=== PATIENT | male | born 1965 | race Two or more races ===

== ENCOUNTER 2024-12-28 10:40 | Inpatient (IN) | payer MEDICAID, SELFPAY ==
[2024-12-28 10:41] VITALS: PULSE 62; RESP 20; O2SAT 98; BMI 35.2
--- NOTE | 2024-12-28 10:43 | PD.EDAMS ---
Altered Mental Status RME/HPI General Chief Complaint: Altered Mental Status Stated Complaint: ALTERED Time Seen by Provider: 12/28/24 10:48 Arrival date/time: 12/28/24 10:40 RME / HPI RME / HPI narrative: DR. MARTINEZ MAIN ED EVALUATION: 59-year-old male with past medical history of hypertension, diabetes mellitus type 2, and GERD presents to the Emergency Department for altered mental status. Per EMS family had mentioned to him that the patient had been behaving normal up until the evening of yesterday and then this morning was more somnolent than normal. Family called 911, when EMS arrived and was placed in the ambulance he became agitated and combative. On route by EMS, he was noted to be have a heart rate in the 50s. He received 1 mg Versed and is now sleeping comfortably. Daily medications include losartan 50 mg, metformin 500 mg, propranolol 40 mg, and sucralfate 1 g. He underwent colonoscopy on 01/24/[address] Winkler. Related Data Home Medications ?Medication ?Instructions ?Recorded ?Confirmed losartan 50 mg tablet 50 mg PO QDAY 01/24/24 12/29/24 metformin 500 mg tablet 500 mg PO BID 01/24/24 12/29/24 propranolol 40 mg tablet 40 mg PO DAILY 01/24/24 12/29/24 sucralfate 1 gram tablet 1 g PO BID 01/24/24 12/29/24 Previous Rx's ?Medication ?Instructions ?Recorded B-complex with vitamin C 1 cap PO QDAY #30 caps 12/30/24 ferrous sulfate 325 mg (65 mg 325 mg PO Q OTHER DAY #30 tabs 12/30/24 iron) tablet lactulose 20 gram oral packet 20 g PO QID PRN encephalopathy #30 12/30/24 ea Allergies Allergy/AdvReac Type Severity Reaction Status Date / Time No Known Allergies Allergy Verified 01/24/24 07:18 Review of Systems Review of Systems Systems Reviewed: All systems reviewed, normal except as documented Past Medical History Past Medical History CARDIAC: Positive Cardiac Disorders and Hypertension MUSCULOSKELETAL: Positive Musculoskeletal Disorders ENDOCRINE: Positive Endocrine Disorders and Diabetes Mellitus Type 2 Social History SMOKING STATUS: Never smoker SUBSTANCE USE: does not use ALCOHOL: Never ED Exam General General appearance: Present in no apparent distress (sleeping) and other Head Head exam: Present other (Patient has scattered scratches on his face, no gross trauma, no septal hematoma, no oropharyngeal blood, no bruising appreciated to patient's face, no facial instability) Eye Eye exam: Present normal appearance and PERRL ENT ENT exam: Present normal exam and normal oropharynx Neck Neck exam: Present normal inspection; Absent tenderness Chest Chest inspection: Present normal inspection and symmetric chest wall rise Respiratory Respiratory exam: Present normal lung sounds bilaterally; Absent respiratory distress, wheezes or stridor Cardiovascular Cardiovascular exam: Present normal rhythm and bradycardia Abdominal Exam Abdominal exam: Present soft; Absent distention, tenderness, guarding, rebound or rigidity Extremities Exam Extremities exam: Present normal inspection Back Exam Back exam: Present normal inspection Neurological Exam Neurological exam: Present other (sleeping, no focal or neuro deficits noted, at times becomes combative, moves all 4 extremities,) Psychiatric Psychiatric exam: Present agitated (Alternates between agitated and sleeping) Skin Skin exam: Present warm, dry, intact and normal color Course Quality Measures none Orders Category Date Time Status Mendoza [Urinary Catheter] QS Care 12/28/24 10:[address] cervical spine wo con Stat Exams 12/28/24 13:[address] head/brain wo con Stat Exams 12/28/24 10:48 Completed US abdomen limited Stat Exams 12/28/24 12:25 Completed Ammonia Stat Lab 12/28/24 11:00 Completed CBC Stat Lab 12/28/24 11:00 Completed CMP [Comprehensive Metabolic Panel] Stat Lab 12/28/24 11:00 Completed Drug Screen,Urine Stat Lab 12/28/24 11:00 Completed PT [Prothrombin Time with INR] Stat Lab 12/28/24 11:00 Completed T4 (Thyroxine) Stat Lab 12/28/24 11:00 Completed TSH [Thyroid Stimulating Hormone] Stat Lab 12/28/24 11:00 Completed Troponin I Stat Lab 12/28/24 11:00 Completed UA, C/S IF [Urinalysis, C/S if Indicated] Stat Lab 12/28/24 11:00 Completed Lactulose Syrup [Enulose Syrup] Med 12/28/24 12:43 Discontinued 20 gm SC X1 ONE Lactulose Syrup [Enulose Syrup] Med 12/28/24 11:57 Discontinued 200 gm SC X1 ONE Midazolam Inj [Versed Inj] Med 12/28/24 14:18 Discontinued 0.5 mg IVP X1 ONE Midazolam Inj [Versed Inj] Med 12/28/24 14:23 Discontinued 1 mg IVP X1 ONE Vital Signs Vital signs: Vital Signs Temperature 98.5 F 12/28/24 11:00 Pulse Rate 56 L 12/28/24 11:00 Respiratory Rate 18 12/28/24 11:00 Blood Pressure 155/94 H 12/28/24 11:00 Pulse Oximetry (%) 98 12/28/24 11:00 Oxygen Delivery Method Room Air 12/28/24 11:00 Altered Mental Status MDM Narrative MDM Narrative:: Patient is a 59-year-old male that is in the emergency department with acute confusion. Vital signs and exam as listed. Concern for intracranial hemorrhage, metabolic derangement, accidental ingestion, hyperammonemia, metabolic disturbance among others. Patient presented sleeping, with a spit mask in place, EMS provided patient with 1 mg of IV Versed in route because he was combative. Patient is protecting his airway.. Ordered CT brain, EKG as well as labs. Patient with ammonia greater than 100. Ordered rectal lactulose. 12p spoke with patient's sister, patient was diagnosed cirrhosis not too long ago he has been noncompliant with his lactulose. Also has a history of diabetes and hypertension. Labs without any leukocytosis he does have a thrombocytopenia of 128. No signs of bleeding. No significant acute electrolyte abnormality. Patient's T. bili is 1.7, AST is 46, alk phos 132. Patient has cirrhosis. 1349: Patient has a few scratches on his face and a cervical collar was placed. Will scan the neck and head. Will consult hospitalist for admission. 1458: Discussed test HPI, PMHx, lab, radiology results and/or management with resident working with the hospitalist. Will admit for further evaluation and management. Accepts patient for admission. CT cervical spine w/ motion artifact. Advised accepting team of results. Hanh Mcleod am scribing for and in the presence of Dr. Martinez. Patient data External records reviewed:: [facility] previous records and EMS form Clinical information provided by:: patient, EMS and family Social determinants that could affect healthcare access:: none Patient has the following chronic illnesses:: Past medical history of hypertension, diabetes mellitus type 2, and GERD. He underwent colonoscopy on 01/24/[address] Winkler. How is presenting disease/condition affected by chronic disease/condition?: uneffected by Evaluation data The following diagnostics were reviewed and interpreted by me:: lab results and radiology exam(s) Lab and/or radiology exams considered but not ordered:: none Interpretation Summary: See MDM narrative above. RADIOLOGY Procedure(s): CT head/brain wo con Accession Number(s): [id number] cc: Renny Cui MD; Magda Martinez MD~ Examination: CT brain head without contrast. 2-D sagittal coronal reconstructions Date and time of exam:December 28, 2024, 11:10 AM Indications: Altered mental status today CTDI: vol (mGy):57.4 DLP: (mGycm):1142 Technique: Multiple CT axial sections of the brain have been obtained, 5 mm slice thickness. Contrast has not been administered. 2-D sagittal, coronal reconstructions have been obtained Low dose protocols were performed. One or more of the following dose reduction techniques were used; automated exposure control, adjustment of the mA and/or KV according to patient size, use of iterative reconstruction technique. Findings: No significant ventricular enlargement. Intra-axial or extra-axial hemorrhage density is not seen. No mass effect or midline shift Basal cisterns are not remarkable. Fourth ventricle is midline. Cranial vault intact. Impression: Negative for acute hemorrhage, mass effect or midline shift Advise clinical correlation and follow-up accordingly Dictated By: Renny Cui MD Procedure(s): US abdomen limited Accession Number(s): [id number] cc: Renny Cui MD; NO PRIMARY/FAMILY,PHYSICIAN; Magda Martinez MD~ Examination: Abdomen sonogram, Limited Date and time of exam: December 28, 2024, 1216 hrs. Indications: Elevated bilirubin on laboratory examination today, 1.7 Technique: Real-time olivo scale transabdominal sonographic images of the upper abdomen obtained. Findings: Normal gallbladder. Normal common bile duct 0.3 cm no stones Pancreatic head 2.8 cm. Liver 13.5 cm fatty infiltration irregular contour Normal hepatopedal portal venous flow Patent IVC Impression: Normal gallbladder Normal common bile duct Primary hepatocellular disease versus cirrhosis Dictated By: Renny Cui MD Procedure(s): CT cervical spine wo con Accession Number(s): [id number] cc: Renny Cui MD; NO PRIMARY/FAMILY,PHYSICIAN; Magda Martinez MD~ Examination: CT cervical spine without contrast 2-D sagittal reconstructions 2-D coronal reconstructions 3-D reconstructions. Exam date and time:December 28, 2024 at 1408 hrs. Indications: Injury to the neck today, neck pain CTDI:vol (mGy) 183 DLP: (mGycm) 356 Technique: Multiple 2 mm axial sections of the cervical spine have been obtained. The coronal and sagittal reconstructions have been obtained. 3-D reconstructions have been obtained. Low dose protocols were performed. One or more of the following dose reduction techniques were used; automated exposure control, adjustment of the mA and/or KV according to patient size, use of iterative reconstruction technique. Findings: The patient is condyle of, patient motion degrades scan image quality Alignment appears adequate No gross cervical fracture The odontoid appears intact Impression: The patient is combative with continual patient motion which severely limits this study No gross fracture noted Repeat this study as clinically warranted Dictated By: Renny Cui MD Medications / Prescriptions Medications or Prescriptions considered but not ordered:: none Medication administrations:: Medication Administration History Discontinued Medications Acetaminophen (Acetaminophen 325 Mg Tablet) 1,000 mg PO Q6H PRN PRN Reason: PAIN SCALE 1-3 (mild Stop: 01/27/25 15:12 Acetaminophen (Acetaminophen 325 Mg Tablet) 1,000 mg PO Q6H PRN PRN Reason: fever 99 or pain 1-06/10 Stop: 01/27/25 15:12 Hydrocodone Bitart/Acetaminophen (Hydrocodone/Apap 5/325 Tablet) 1 tab PO Q4HR PRN PRN Reason: PAIN SCALE 4-6 (Moderate Stop: 01/02/25 15:12 Hydrocodone Bitart/Acetaminophen (Hydrocodone/Apap 10/325 Tab) 1 tab PO Q4HR PRN PRN Reason: PAIN SCALE 7-10 (Severe Stop: 01/02/25 15:12 Olanzapine 10 mg/ Sterile (Water 2.1 ml) 0 mg IM X1 ONE Stop: 12/29/24 00:24 Last Admin: 12/29/24 00:34 Dose: 1 dose Documented By: KENDRA Olanzapine 10 mg/ Sterile (Water 2.1 ml) 0 mg IM X1 ONE Stop: 12/29/24 00:25 Last Admin: 12/29/24 00:48 Dose: Not Given Documented By: KENDRA Non-Admin Reason: Cancelled by Provider Comments: Per Dr. Bundy, cancel this order due to duplicate. Dextrose (Dextrose 50%-Water Inj 50 Ml Syringe) 25 ml IV Q15MIN PRN PRN Reason: BG 50-70 responsive npo pt Stop: 01/27/25 20:56 Dextrose (Dextrose 50%-Water Inj 50 Ml Syringe) 50 ml IV Q15MIN PRN PRN Reason: BG <50 OR BG <70 & pt unresponsive Stop: 01/27/25 20:56 Diazepam (Diazepam Inj 5 Mg/Ml Vial 2 Ml) 10 mg IVP Q2HR PRN PRN Reason: CIWA >20 Stop: 01/03/25 10:01 Diphenhydramine HCl (Diphenhydramine Inj 50 Mg/Ml Vial) 25 mg IVP X1 ONE Stop: 12/29/24 02:54 Last Admin: 12/29/24 02:58 Dose: 25 mg Documented By: KENDRA Folic Acid (Folic Acid 1 Mg Tablet) 1 mg PO QDAY [facility] Stop: 01/31/25 08:59 Folic Acid (Folic Acid Inj 1 Mg/0.2 Ml) 1 mg IVP QDAY [facility] Stop: 01/01/25 08:59 Last Admin: 12/30/24 08:34 Dose: 1 mg Documented By: Glucagon (Glucagon Inj 1 Mg Vial) 1 mg IM Q15MIN PRN PRN Reason: BG <70, and no IV access Haloperidol Lactate (Haloperidol Lact Inj 5 Mg/Ml Vial) 2.5 mg IV X1 ONE Stop: 12/28/24 16:08 Last Admin: 12/28/24 16:20 Dose: 2.5 mg Documented By: SHAILESH Haloperidol Lactate (Haloperidol Lact Inj 5 Mg/Ml Vial) 2.5 mg IV Q6HR PRN PRN Reason: AGITATION (SEVERE) Stop: 01/02/25 21:59 Haloperidol Lactate (Haloperidol Lact Inj 5 Mg/Ml Vial) Confirm Administered Dose 5 mg .ROUTE .STK-MED ONE Stop: 12/28/24 19:16 Last Admin: 12/28/24 19:21 Dose: Not Given Documented By: MEDARDO Non-Admin Reason: Discontinued Haloperidol Lactate (Haloperidol Lact Inj 5 Mg/Ml Vial) 2.5 mg IV Q6HR PRN PRN Reason: AGITATION (SEVERE) Stop: 01/27/25 19:24 Last Admin: 12/28/24 19:25 Dose: 2.5 mg Documented By: MEDARDO Comments: pt agitated Haloperidol Lactate (Haloperidol Lact Inj 5 Mg/Ml Vial) 2.5 mg IV X1 ONE Stop: 12/28/24 22:15 Last Admin: 12/28/24 22:23 Dose: 2.5 mg Documented By: KENDRA Heparin Sodium (Porcine) (Heparin Sod Inj 5000 Unit/Ml Vial) 5,000 unit SC BID [facility] Stop: 01/11/25 20:59 Last Admin: 12/30/24 08:32 Dose: 5,000 unit Documented By: Co-signed By: BRYAN Admin: 12/29/24 20:02 Dose: 5,000 unit Documented By: MARCIA Co-signed By: MANAS Admin: 12/29/24 08:32 Dose: 5,000 unit Documented By: Co-signed By: BRYAN Admin: 12/28/24 20:45 Dose: 5,000 unit Documented By: KENDRA Co-signed By: SAHLEY Hydralazine HCl (Hydralazine Inj 20 Mg/Ml Vial) 10 mg IVP BID PRN PRN Reason: BP >140 Stop: 01/27/25 20:59 Hydroxyzine HCl (Hydroxyzine Inj 25 Mg/Ml Vial) 50 mg IM X1 ONE Stop: 12/29/24 00:18 Last Admin: 12/29/24 02:40 Dose: Not Given Documented By: CCT Non-Admin Reason: Cancelled by Provider Lactated Ringer's (Lactated Ringers) 1,000 mls @ 75 mls/hr IV .[id number] [facility] Stop: 01/27/25 16:53 Last Admin: 12/29/24 11:52 Dose: Not Given Documented By: Non-Admin Reason: Discontinued Infusion: 12/29/24 06:39 Dose: Infused Documented By: Admin: 12/28/24 17:19 Dose: 75 mls/hr Documented By: SHAILESH Magnesium Sulfate (Magnesium Sulfate Ivpb) 2 gm in 50 mls @ 25 mls/hr IV X1 ONE Stop: 12/29/24 15:54 Last Admin: 12/29/24 14:16 Dose: 25 mls/hr Documented By: Potassium Chloride (Kcl Ivpb) 10 meq in 100 mls @ 100 mls/hr IV Q1H [facility] Stop: 12/30/24 11:52 Last Admin: 12/30/24 12:17 Dose: Not Given Documented By: Non-Admin Reason: Discontinued Infusion: 12/30/24 10:49 Dose: Infused Documented By: Admin: 12/30/24 09:29 Dose: 75 mls/hr Documented By: Magnesium Sulfate (Magnesium Sulfate Ivpb) 2 gm in 50 mls @ 25 mls/hr IV X1 ONE Stop: 12/30/24 15:48 Last Admin: 12/30/24 14:20 Dose: 25 mls/hr Documented By: Insulin Human Lispro (Insulin Lispro (Admelog) 1 Unit/0.01 Ml Unit) 0 unit SC Q6HR [facility]; Protocol Stop: 01/28/25 00:00 Last Admin: 12/29/24 11:53 Dose: Not Given Documented By: Non-Admin Reason: Per Protocol Admin: 12/29/24 06:36 Dose: Not Given Documented By: KENDRA Non-Admin Reason: Per Protocol Admin: 12/28/24 23:43 Dose: Not Given Documented By: KENDRA Non-Admin Reason: Per Protocol Insulin Human Lispro (Insulin Lispro (Admelog) 1 Unit/0.01 Ml Unit) 0 unit SC ACHS [facility]; Protocol Stop: 01/28/25 17:14 Last Admin: 12/30/24 16:47 Dose: Not Given Documented By: Non-Admin Reason: Per Protocol Admin: 12/30/24 11:45 Dose: 2 unit Documented By: Co-signed By: BRYAN Admin: 12/30/24 08:38 Dose: Not Given Documented By: Non-Admin Reason: Per Protocol Admin: 12/29/24 20:05 Dose: 1 unit Documented By: MARCIA Co-signed By: MANAS Admin: 12/29/24 17:19 Dose: Not Given Documented By: Non-Admin Reason: Per Protocol Lactulose (Lactulose Syrup 10 Gm/15 Ml) 200 gm SC X1 ONE; Protocol Stop: 12/28/24 11:58 Last Admin: 12/28/24 13:26 Dose: Not Given Documented By: SVETLANA Non-Admin Reason: Cancelled by Provider Lactulose (Lactulose Syrup 20 Gm/30 Ml Udc) 20 gm SC X1 ONE; Protocol Stop: 12/28/24 12:44 Last Admin: 12/28/24 17:36 Dose: Not Given Documented By: SHAILESH Non-Admin Reason: Cancelled by Provider Lactulose (Lactulose Syrup 20 Gm/30 Ml Udc) 200 gm SC QID [facility]; Protocol Stop: 01/27/25 16:59 Lactulose (Lactulose Syrup 10 Gm/15 Ml) 200 gm SC QID [facility]; Protocol Stop: 01/27/25 16:59 Last Admin: 12/29/24 06:50 Dose: Not Given Documented By: CCT Non-Admin Reason: Hold dose per Dr. Barrett Admin: 12/28/24 20:54 Dose: 200 gm Documented By: Admin: 12/28/24 20:14 Dose: Not Given Documented By: CCT Non-Admin Reason: Wrong Time Lactulose (Lactulose Syrup 20 Gm/30 Ml Udc) 10 gm PO TID [facility]; Protocol Stop: 01/28/25 09:14 Last Admin: 12/30/24 14:21 Dose: 10 gm Documented By: Admin: 12/30/24 05:26 Dose: 10 gm Documented By: Admin: 12/29/24 22:22 Dose: 10 gm Documented By: Admin: 12/29/24 14:17 Dose: 10 gm Documented By: Admin: 12/29/24 09:42 Dose: 10 gm Documented By: Lorazepam (Lorazepam 0.5 Mg Tablet) 1 mg PO Q4HR PRN PRN Reason: CIWA 5-10 Stop: 01/03/25 10:01 Lorazepam (Lorazepam 0.5 Mg Tablet) 2 mg PO Q2HR PRN PRN Reason: CIWA 11-15 Stop: 01/03/25 10:01 Lorazepam (Lorazepam 0.5 Mg Tablet) 4 mg PO Q2HR PRN PRN Reason: CIWA 16-20 Stop: 01/03/25 10:01 Losartan Potassium (Losartan Potassium 25 Mg Tablet) 50 mg PO QDAY [facility] Stop: 01/28/25 08:59 Last Admin: 12/30/24 08:35 Dose: 50 mg Documented By: Admin: 12/29/24 09:41 Dose: 50 mg Documented By: Midazolam HCl (Midazolam Inj 1 Mg/Ml Vial 2 Ml) 0.5 mg IVP X1 ONE Stop: 12/28/24 14:19 Last Admin: 12/28/24 15:11 Dose: Not Given Documented By: EF Non-Admin Reason: Cancelled by Provider Midazolam HCl (Midazolam Inj 1 Mg/Ml Vial 2 Ml) 1 mg IVP X1 ONE Stop: 12/28/24 14:24 Last Admin: 12/28/24 14:27 Dose: 1 mg Documented By: EF Midazolam HCl (Midazolam Inj 1 Mg/Ml Vial 2 Ml) 1 mg IVP X1 ONE Stop: 12/28/24 16:07 Last Admin: 12/28/24 16:20 Dose: 1 mg Documented By: EF Olanzapine (Olanzapine 5 Mg Tablet) 5 mg PO X1 ONE Stop: 12/29/24 00:16 Ondansetron HCl (Ondansetron Inj 2 Mg/Ml Inj 2 Ml) 4 mg IV Q6HR PRN; Protocol PRN Reason: NAUSEA OR VOMITING Stop: 01/27/25 16:45 Pantoprazole Sodium (Pantoprazole Inj 40 Mg Vial) 40 mg IVP QDAY [facility] Stop: 01/27/25 16:14 Last Admin: 12/30/24 08:32 Dose: 40 mg Documented By: Admin: 12/29/24 08:25 Dose: 40 mg Documented By: Admin: 12/28/24 16:20 Dose: 40 mg Documented By: SHAILESH Potassium Chloride (Potassium Chloride 20 Meq Tabcr) 20 meq PO X1 ONE Stop: 12/30/24 10:43 Last Admin: 12/30/24 11:39 Dose: 20 meq Documented By: Potassium Chloride (Potassium Chloride 20 Meq Tabcr) 20 meq PO X1 ONE Stop: 12/30/24 13:49 Last Admin: 12/30/24 14:21 Dose: 20 meq Documented By: Propranolol HCl (Propranolol 40 Mg Tablet) 40 mg PO DAILY [facility] Stop: 01/29/25 10:44 Last Admin: 12/30/24 11:39 Dose: 40 mg Documented By: Sevelamer Carbonate (Sevelamer Carbonate 800 Mg Tablet) 800 mg PO X1 ONE Stop: 12/30/24 08:52 Last Admin: 12/30/24 09:28 Dose: 800 mg Documented By: Sucralfate (Sucralfate 1 Gm Tablet) 1 gm PO BID [facility] Stop: 01/28/25 08:59 Last Admin: 12/30/24 08:32 Dose: 1 gm Documented By: Admin: 12/29/24 20:02 Dose: 1 gm Documented By: Admin: 12/29/24 09:40 Dose: 1 gm Documented By: Thiamine HCl (Thiamine Inj 100 Mg/Ml Vial 2 Ml) 100 mg IVP QDAY [facility] Stop: 01/01/25 08:59 Last Admin: 12/30/24 08:33 Dose: 100 mg Documented By: Thiamine HCl (Thiamine 100 Mg Tablet) 100 mg PO QDAY [facility] Stop: 01/31/25 08:59 see above if any Consultations Consultation(s) initiated? (list below): Yes Consultation #1 (Physician, Specialty, Details): See MDM narrative above. Diagnosis Differential diagnosis altered mental status: other (Medication-induced encephalopathy, metabolic encephalopathy, and stroke/TIA.) Most likely diagnosis given after review of the tests above:: Hepatic encephalopathy Admission Indicated Admission indicated?: indicated Admission Request Was there a request for admission?: Yes Admission Attestation Admission request attestation: Discussed case with [] from Hospitalist service regarding admission. Discussed patients ED course, exam findings, labs, and radiology results. The Hospitalist [agrees,declines] to accept the patient for admission. Disposition Plan Disposition Plan: Admit Critical Care Time Critical Care Time Critical Care Time: Yes Total Critical Care Time (min.): 60 Attestation: The high probability of sudden, clinically significant deterioration in the patient?s condition required the highest level of my preparedness to intervene urgently. The services I provided to this patient were to treat and/or prevent clinically significant deterioration. Services included the following: chart data review, reviewing nursing notes and/or old charts, documentation time, distributor sales consultant collaboration regarding findings and treatment options, medication orders and management, direct patient care, vital sign assessments and ordering, interpreting and reviewing diagnostic studies and lab tests. Aggregate critical care time includes only time during which I was engaged in work directly related to the patient?s care, as described above, whether at bedside or elsewhere in the Emergency Department. It did not include time spent performing other reported procedures or the services of residents, students, nurses or physician assistants. Discharge Plan Plan Patient Disposition: Admit Acute Care w/in Hospital Patient condition on transfer: Stable Problem List Clinical Impression: Altered mental status
--- NOTE | 2024-12-28 10:48 | XR_ITS ---
Examination: CT brain head without contrast. 2-D sagittal coronal reconstructions Date and time of exam:December 28, 2024, 11:10 AM Indications: Altered mental status today CTDI: vol (mGy):57.4 DLP: (mGycm):1142 Technique: Multiple CT axial sections of the brain have been obtained, 5 mm slice thickness. Contrast has not been administered. 2-D sagittal, coronal reconstructions have been obtained Low dose protocols were performed. One or more of the following dose reduction techniques were used; automated exposure control, adjustment of the mA and/or KV according to patient size, use of iterative reconstruction technique. Findings: No significant ventricular enlargement. Intra-axial or extra-axial hemorrhage density is not seen. No mass effect or midline shift Basal cisterns are not remarkable. Fourth ventricle is midline. Cranial vault intact. Impression: Negative for acute hemorrhage, mass effect or midline shift Advise clinical correlation and follow-up accordingly
[2024-12-28 11:00] VITALS: BP 155/94; PULSE 56; RESP 18; TEMP 36.9; O2SAT 98
[2024-12-28 11:13] LABS: Collection Type, Urine Clean Catch; Squamous Epithelial Cell,Urine 0 /hpf (0-5)
[2024-12-28 11:17] LABS: Basophils # (Auto) 0.0 Thou/mm3 (0.0-0.2); Basophils % (Auto) 1 % (0-2.5); Eosinophils # (Auto) 0.1 Thou/mm3 (0.0-0.5); Eosinophils % (Auto) 1 % (0-10); Hematocrit 42.9 % (41.0-53.0); Hemoglobin 13.3 g/dL (13.5-16.0); Immature Granulocytes Auto 0.01 Thou/mm3 (0.00-0.00); Lymphocytes # (Auto) 1.2 Thou/mm3 (1.0-4.8); Lymphocytes % (Auto) 27 % (10-50); Mean Corpuscular HGB Conc 31.0 g/dl (31.0-37.0); Mean Corpuscular Hemoglobin 24.3 pg (25.0-35.0); Mean Corpuscular Volume 78 fL (80-100); Monocytes # (Auto) 0.4 Thou/mm3 (0.0-0.8); Monocytes % (Auto) 9 % (0-12); Neutrophils # (Auto) 2.7 Thou/mm3 (1.8-7.7); Neutrophils % (Auto) 62 % (37-80); Nucleated Red Blood Cell # 0.00 Thou/mm3 (0.00-0.00); Nucleated Red Blood Cell % 0 /100 WBC (0); Platelet Count 128 Thou/mm3 (140-440); RDW Standard Deviation 50.4 fL (35.1-43.9); Red Blood Count 5.48 Miln/mm3 (4.50-5.90); White Blood Count 4.4 Thou/mm3 (3.8-10.6)
[2024-12-28 11:30] LABS: INR 1.3 (0.9-1.3); Prothrombin Time 14.0 Seconds (9.0-12.2)
[2024-12-28 11:32] LABS: Ammonia 132 uMol/L (11-32)
[2024-12-28 12:10] LABS: Alanine Aminotransferase 23 U/L (10-49); Albumin, Serum 3.6 gm/dL (3.5-5.0); Albumin/Globulin Ratio 0.9 (1.2-2.2); Alkaline Phosphatase 132 U/L (46-116); Anion Gap 9 (7-16); Aspartate Amino Transferase 46 U/L (0-34); BUN/Creatinine Ratio 14 Ratio (12-20); Bilirubin,Total 1.7 mg/dL (0.3-1.2); Blood Urea Nitrogen 11 mg/dL (9-23); Calcium 9.1 mg/dL (8.3-10.6); Calcium (Corrected) 9.4 mg/dL (8.5-10.1); Carbon Dioxide 21.0 mMol/L (20.0-31.0); Chloride 109 mMol/L (98-107); Creatinine (Component) 0.8 mg/dL (0.6-1.3); Estimated Creatinine Clearance 113.2 mL/min (>60); Globulin 4.2 gm/dL (2.3-3.5); Glucose 121 mg/dL (74-106); Osmolality,Calculated 277 (275-295); Potassium 4.3 mMol/L (3.4-5.1); Sodium 139 mMol/L (136-145); Thyroid Stimulating Hormone 1.21 uIU/mL (0.55-4.78); Total Protein 7.8 gm/dL (5.7-8.2); Troponin I < 0.002 ng/mL (0.0-0.045); eGFR > 60 See Note
[2024-12-28 12:11] LABS: Amphetamine/Methamp Scrn,U Negative (Negative); Bacteria,Urine Rare; Barbiturate Screen,Urine Negative (Negative); Benzodiazepines Screen,Urine Negative (Negative); Benzoylecgonine Screen, Ur Negative (Negative); Bilirubin,Urine Negative (Negative); Blood,Urine Negative (Negative); Clarity,Urine Clear (Clear/Hazy); Color,Urine Lt-Yellow (Lt Yel-Yel); Culture Indicated,Urine Not Indicated; Fentanyl Screen,Urine Negative (Negative); Glucose, Urine Negative (Negative); Ketones,Urine Negative (Negative); Leukocyte Esterase,Urine Negative (Negative); Nitrite,Urine Negative (Negative); Opiate Screen,Urine Negative (Negative); PH,Urine 7.0 (5.0-7.0); Protein,Urine Negative (Neg - Trace); RBC,Urine 1 /hpf (0-3); Specific Gravity,Urine 1.012 (1.001-1.035); THC Screen,Urine Negative (Negative); Urobilinogen,Urine Negative mg/dL (0.0-1.0); WBC,Urine < 1 /hpf (0-5)
--- NOTE | 2024-12-28 12:25 | XR_ITS ---
Examination: Abdomen sonogram, Limited Date and time of exam: December 28, 2024, 1216 hrs. Indications: Elevated bilirubin on laboratory examination today, 1.7 Technique: Real-time olivo scale transabdominal sonographic images of the upper abdomen obtained. Findings: Normal gallbladder. Normal common bile duct 0.3 cm no stones Pancreatic head 2.8 cm. Liver 13.5 cm fatty infiltration irregular contour Normal hepatopedal portal venous flow Patent IVC Impression: Normal gallbladder Normal common bile duct Primary hepatocellular disease versus cirrhosis
[2024-12-28 12:43] LABS: T4 (Thyroxine) 5.1 mcg/dL (4.5-10.9)
--- NOTE | 2024-12-28 13:49 | XR_ITS ---
Examination: CT cervical spine without contrast 2-D sagittal reconstructions 2-D coronal reconstructions 3-D reconstructions. Exam date and time:December 28, 2024 at 1408 hrs. Indications: Injury to the neck today, neck pain CTDI:vol (mGy) 183 DLP: (mGycm) 356 Technique: Multiple 2 mm axial sections of the cervical spine have been obtained. The coronal and sagittal reconstructions have been obtained. 3-D reconstructions have been obtained. Low dose protocols were performed. One or more of the following dose reduction techniques were used; automated exposure control, adjustment of the mA and/or KV according to patient size, use of iterative reconstruction technique. Findings: The patient is condyle of, patient motion degrades scan image quality Alignment appears adequate No gross cervical fracture The odontoid appears intact Impression: The patient is combative with continual patient motion which severely limits this study No gross fracture noted Repeat this study as clinically warranted
[2024-12-28] MEDS: MIDAZOLAM INJ 1 MG/ML VIAL 2 ML IVP ×2 (14:27→16:20)
[2024-12-28] MEDS: HALOPERIDOL LACT INJ 5 MG/ML VIAL 2.5 MG IV ×3 (16:20→22:23)
[2024-12-28 16:26] VITALS: BP 163/80; PULSE 60; RESP 19; TEMP 37.2; O2SAT 95
[2024-12-28 16:31] LABS: Ammonia 65 uMol/L (11-32)
[2024-12-28] MEDS: RINGERS LACTATED 1000 ML 1,000 ML 75 ML IV (17:19)
[2024-12-28 18:46] VITALS: BP 157/68; PULSE 59; RESP 18; TEMP 37.1; O2SAT 97
[2024-12-28 19:36] VITALS: PULSE 76; RESP 19; O2SAT 92
--- NOTE | 2024-12-28 19:39 | PD.RESHP ---
Documentation for date of: 12/28/24 HPI History of Present Illness History of present illness: HPI: 59-year-old male with past medical history of hypertension, diabetes mellitus type 2, GERD, and liver disease presented to the ED on 12/28/2024 for altered mental status. Patient was found by family members to be lying unresponsive on the floor. He was mumbling incomprehensible words and would not wake up according to family. last known well was the day before yesterday. Even then patient had been making inappropriate comments like I want to eat table or asking for pants when he had a pair already on. History is gathered from niece. ED Course: At arrival, VSS T98.5, HR 56, RR 18, BP 155/94, O2 98% on room air. Labs showed Thrombocytopenia 128, WBC 4.4, Hgb 13.3, glucose 121, ammonia 132 down trended to 65 at 4 PM (12/28). No signs of bleeding T. bili 1.7, AST 46, alk phos 132. CT head was negative for acute hemorrhage, mass effect, or midline shift. Abdominal ultrasound showed normal gallbladder, normal common bile duct, primary hepatocellular disease versus cirrhosis. No gross fractures noted on CT cervical spine. As patient was combative, he was sedated by midazolam 0.5 mg, followed by 1 mg x 2. Also given haloperidol 2.5 mg x 1. Ammonia 132, 65, 78. Meds: Losartan 50 mg daily, metformin 500 mg twice daily, propranolol 40 mg daily, sucralfate 1 g daily Allergy: [none] PMHx: Hypertension, diabetes mellitus type 2, GERD, liver disease, cirrhosis PSHx: [none] Fam Hx: Father and mother both healthy and from old age in 90s Soc Hx: Patient smoked for more than 20 years before quitting 2 years ago. Drinks 2-3 beers daily. [Denies using marijuana, or illicit drugs]. Review of Systems Constitutional Comments: General: Alert and oriented x3, No apparent distress. Skin: Intact, Warm, no rashes. Noted lacerations on the right confucianist area. HEENT: Normocephalic, Atraumatic. Normal neck range of motion, Supple. Trachea midline. Respiratory: Lungs are clear to auscultation, Breath sounds are equal bilaterally with equal chest expansion. Cardiovascular: RRR, normal S1, S2, No murmurs. Distal pulses 2+ Abdomen: Abdomen non-distended, without erythema, or lesions. Normotensive bowel sounds x4. Percussion tympanic. Palpation soft, nontender in all four quadrants. No organomagely. Absent rigidity, guarding, or rebound. Musculoskeletal/Extremities: No erythema, swelling, tenderness of any joints. No edema of BLE. DP pulses +2/3 b/l. Full active ROM of all four extremities. Neurologic: NEURO: Somnolent, unresponsive, sedated Psych: Thoughts linear and responses appropriate. Exam Vital Signs Temp Pulse Resp BP Pulse Ox O2 Del Method 98.7 F 59 L 18 157/68 H 97 Room Air 12/28/24 18:46 12/28/24 18:46 12/28/24 18:46 12/28/24 18:46 12/28/24 18:46 12/28/24 18:46 Results: Labs 12/29/24 04:40 12/29/24 04:40 Labs: Short CBC 12/28/24 Range/Units 11:00 WBC 4.4 (3.8-10.6) Thou/mm3 Hgb 13.3 L (13.5-16.0) g/dL Hct 42.9 (41.0-53.0) % Plt Count 128 L (140-440) Thou/mm3 BMP 12/28/24 11:00 Sodium 139 Potassium 4.3 Chloride 109 H Carbon Dioxide 21.0 BUN 11 Creatinine 0.8 Glucose 121 H Calcium 9.1 Cardiac Enzymes 12/28/24 Range/Units 11:00 Troponin I < 0.002 (0.0-0.045) ng/mL Liver Function 12/28/24 Range/Units 11:00 Total Bilirubin 1.7 H (0.3-1.2) mg/dL AST 46 H (0-34) U/L ALT 23 (10-49) U/L Alkaline Phosphatase 132 H (46-116) U/L Albumin 3.6 (3.5-5.0) gm/dL Urine 12/28/24 Range/Units 11:00 Urine Color Lt-Yellow (Lt Yel-Yel) Urine Clarity Clear (Clear/Hazy) Urine pH 7.0 (5.0-7.0) Ur Specific [place] 1.012 (1.001-1.035) Urine Protein Negative (Neg - Trace) Urine Glucose (UA) Negative (Negative) Quality Measures Quality Measures none Medications Home Medications and Allergies Home Medications ?Medication ?Instructions ?Recorded ?Confirmed ?Type losartan 50 mg tablet 50 mg PO QDAY 01/24/24 12/29/24 History metformin 500 mg tablet 500 mg PO BID 01/24/24 12/29/24 History propranolol 40 mg tablet 40 mg PO DAILY 01/24/24 12/29/24 History sucralfate 1 gram tablet 1 g PO BID 01/24/24 12/29/24 History Allergies Allergy/AdvReac Type Severity Reaction Status Date / Time No Known Allergies Allergy Verified 01/24/24 07:18 Visit Medications Acetaminophen (Acetaminophen 325 Mg Tablet) 1,000 mg PO Q6H PRN PRN Reason: fever 99 or pain -06/10 Stop: 01/27/25 15:12 Haloperidol Lactate (Haloperidol Lact Inj 5 Mg/Ml Vial) 2.5 mg IV Q6HR PRN PRN Reason: AGITATION (SEVERE) Stop: 01/27/25 19:24 Last Admin: 12/28/24 19:25 Dose: 2.5 mg Heparin Sodium (Porcine) (Heparin Sod Inj 5000 Unit/Ml Vial) 5,000 unit SC BID [facility] Stop: 01/11/25 20:59 Hydralazine HCl (Hydralazine Inj 20 Mg/Ml Vial) 10 mg IVP BID PRN PRN Reason: BP >140 Stop: 01/27/25 20:59 Lactated Ringer's (Lactated Ringers) 1,000 mls @ 75 mls/hr IV .[id number] [facility] Stop: 01/27/25 16:53 Last Admin: 12/28/24 17:19 Dose: 75 mls/hr Lactulose (Lactulose Syrup 10 Gm/15 Ml) 200 gm MI QID SANTIAGO; Protocol Stop: 01/27/25 16:59 Ondansetron HCl (Ondansetron Inj 2 Mg/Ml Inj 2 Ml) 4 mg IV Q6HR PRN; Protocol PRN Reason: NAUSEA OR VOMITING Stop: 01/27/25 16:45 Pantoprazole Sodium (Pantoprazole Inj 40 Mg Vial) 40 mg IVP QDAY [facility] Stop: 01/27/25 16:14 Last Admin: 12/28/24 16:20 Dose: 40 mg Discontinued Medications Acetaminophen (Acetaminophen 325 Mg Tablet) 1,000 mg PO Q6H PRN PRN Reason: PAIN SCALE 1-3 (mild Stop: 01/27/25 15:12 Hydrocodone Bitart/Acetaminophen (Hydrocodone/Apap 5/325 Tablet) 1 tab PO Q4HR PRN PRN Reason: PAIN SCALE 4-6 (Moderate Stop: 01/02/25 15:12 Hydrocodone Bitart/Acetaminophen (Hydrocodone/Apap 10/325 Tab) 1 tab PO Q4HR PRN PRN Reason: PAIN SCALE 7-10 (Severe Stop: 01/02/25 15:12 Haloperidol Lactate (Haloperidol Lact Inj 5 Mg/Ml Vial) 2.5 mg IV X1 ONE Stop: 12/28/24 16:08 Last Admin: 12/28/24 16:20 Dose: 2.5 mg Haloperidol Lactate (Haloperidol Lact Inj 5 Mg/Ml Vial) 2.5 mg IV Q6HR PRN PRN Reason: AGITATION (SEVERE) Stop: 01/02/25 21:59 Lactulose (Lactulose Syrup 10 Gm/15 Ml) 200 gm MI X1 ONE; Protocol Stop: 12/28/24 11:58 Last Admin: 12/28/24 13:26 Dose: Not Given Lactulose (Lactulose Syrup 20 Gm/30 Ml Udc) 20 gm MI X1 ONE; Protocol Stop: 12/28/24 12:44 Last Admin: 12/28/24 17:36 Dose: Not Given Lactulose (Lactulose Syrup 20 Gm/30 Ml Udc) 200 gm MI QID SANTIAGO; Protocol Stop: 01/27/25 16:59 Midazolam HCl (Midazolam Inj 1 Mg/Ml Vial 2 Ml) 0.5 mg IVP X1 ONE Stop: 12/28/24 14:19 Last Admin: 12/28/24 15:11 Dose: Not Given Midazolam HCl (Midazolam Inj 1 Mg/Ml Vial 2 Ml) 1 mg IVP X1 ONE Stop: 12/28/24 14:24 Last Admin: 12/28/24 14:27 Dose: 1 mg Midazolam HCl (Midazolam Inj 1 Mg/Ml Vial 2 Ml) 1 mg IVP X1 ONE Stop: 12/28/24 16:07 Last Admin: 12/28/24 16:20 Dose: 1 mg Assessment & Plan Plan Patient is a 59 years old male with past medical history of hypertension, diabetes mellitus, GERD and Liver cirrhosis who presented to the ED with complaint of Altered mental status. Was found to have elevated ammonia, noncompliant with his lactulose dosing. We will admit the patient for management of Acute encephalopathy likely secondary to Decompesnsated liver cirrhosis. #Acute encephalopathy #Decompensated liver cirrhosis #Hyperammonemia Patient presented with altered mentation, was agitated and confused in the ED CT head was obtained, negative for acute hemorrhage, mass effect or midline shift Patient has some scratches, CT cervical spine was obtained in the ED, negative for acute fractures Noted to have T. Dennis of 1.7, AST 46, ALP 132, Ammonia 132, PT/INR 14/1.3 Frequent neurochecks, Head of bed elevated, bedside swallow screen, speech therapy evaluation NPO until able to pass swallow screen Started on Lactulose rectally, goal of 3-4 bowel movement per day Received haloperidol and Midazolam for agitation #Hypertension, primary, stage 2 Systolic bood pressure in 150s to 160s Patient on hydralazine as needed We will resume home meds once reconsiled #Diabetes Mellitus Started on Insulin sliding scale A1C for AM #GERD Started on Pantoprazole Disposition: Telemetry for management of acute encephalopathy DVT prophylaxis: Heparin SC Diet: NPO Code Status: Full code This case was discussed with my attending physician, Dr. Khan. Eryn Barrett DO PGY I Attending Provider Attestation/Addendum I attest that I was physically present for the evaluation, physical examination, lab and imaging review of the patient with the residents. I discussed the case with the residents and agree with the findings and plans of care as documented above. After examination of the patient and review of the clinical data I feel that this patient needs admission to the hospital for further treatment/evaluation. Adriana Khan MD
--- NOTE | 2024-12-28 19:44 | PC.NURSE ---
Per Sarthak Charge nurse, room ready-pt being transported by JULIAN Austin and tricia Rosenberg.
[2024-12-28] MEDS: HEPARIN SOD INJ 5000 UNIT/ML VIAL SC (20:45)
[2024-12-28] MEDS: LACTULOSE SYRUP 10 GM/15 ML 200 GM PR (20:54)
[2024-12-28 21:17] VITALS: BP 127/67; PULSE 57; RESP 18; TEMP 36.2; O2SAT 96
[2024-12-28 21:41] LABS: Ammonia 78 uMol/L (11-32)
--- NOTE | 2024-12-28 22:10 | PC.NURSE ---
Called hospitalist spoke to resident Dr. Bundy. Made aware pt is confused, uncooperative, very restless. Pt currently receiving lactulose [place]; pt not tolerating well. Pt restless, enema reinserted 2 times. Also MD made aware last dose of Haldol given at 1925. Per MD will put in new orders.
--- NOTE | 2024-12-28 23:00 | PC.NURSE ---
Pt removed mittal catheter noted moderate bleeding, Dr. Bundy contacted via phone of patient removal of mittal. Dr. Bundy came to bedside ordered stat EKG.
--- NOTE | 2024-12-28 23:23 | EKG_ITS ---
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
--- NOTE | 2024-12-28 23:56 | PC.NURSE ---
RN notified Dr. Bundy of complete EKG. Patient is still very agitated. Pending new orders as previous 1x 2.5mg IVP haldol not effective in controlling severe agitation.
[2024-12-29] VITALS (7 sets, daily range): BP systolic 118–164; BP diastolic 65–88; PULSE 55–75; RESP 14–24; TEMP 36–36.7; O2SAT 95–99
--- NOTE | 2024-12-29 00:15 | PC.NURSE ---
Called hospitalist again, spoke to Dr. Bundy to follow-up on order for agitation and restlessness. Per MD, will put in new orders
[2024-12-29] MEDS: OLANZapine INJ 10 MG, Sterile Water 2.1 ML IM (00:34)
--- NOTE | 2024-12-29 02:50 | PC.NURSE ---
At this time, pt is awake, very restless, uncooperative. Pt continuously trying to get out of bed. Called hospitalist, spoke to resident Dr. Rivers, per md will put in new order.
[2024-12-29 05:35] LABS: Basophils # (Auto) 0.1 Thou/mm3 (0.0-0.2); Basophils % (Auto) 1 % (0-2.5); Eosinophils # (Auto) 0.0 Thou/mm3 (0.0-0.5); Eosinophils % (Auto) 0 % (0-10); Hematocrit 39.4 % (41.0-53.0); Hemoglobin 12.0 g/dL (13.5-16.0); Immature Granulocytes Auto 0.00 Thou/mm3 (0.00-0.00); Lymphocytes # (Auto) 1.6 Thou/mm3 (1.0-4.8); Lymphocytes % (Auto) 24 % (10-50); Mean Corpuscular HGB Conc 30.5 g/dl (31.0-37.0); Mean Corpuscular Hemoglobin 24.1 pg (25.0-35.0); Mean Corpuscular Volume 79 fL (80-100); Monocytes # (Auto) 0.9 Thou/mm3 (0.0-0.8); Monocytes % (Auto) 13 % (0-12); Neutrophils # (Auto) 4.3 Thou/mm3 (1.8-7.7); Neutrophils % (Auto) 62 % (37-80); Nucleated Red Blood Cell # 0.00 Thou/mm3 (0.00-0.00); Nucleated Red Blood Cell % 0 /100 WBC (0); Platelet Count 108 Thou/mm3 (140-440); RDW Standard Deviation 50.9 fL (35.1-43.9); Red Blood Count 4.98 Miln/mm3 (4.50-5.90); White Blood Count 6.9 Thou/mm3 (3.8-10.6)
--- NOTE | 2024-12-29 05:35 | PC.NURSE ---
At this time, pt is more awake/oriented to self. Pt able to states the current year and his birthday. Pt able to follow commands and make needs known. Pt requested to have water, swallow evaluation will be performed. No s/s of acute distress noted. Plan of care ongoing.
[2024-12-29 05:49] LABS: Alanine Aminotransferase 19 U/L (10-49); Albumin, Serum 3.3 gm/dL (3.5-5.0); Albumin/Globulin Ratio 0.9 (1.2-2.2); Alkaline Phosphatase 120 U/L (46-116); Anion Gap 12 (7-16); Aspartate Amino Transferase 52 U/L (0-34); BUN/Creatinine Ratio 13 Ratio (12-20); Bilirubin,Total 1.6 mg/dL (0.3-1.2); Blood Urea Nitrogen 10 mg/dL (9-23); Calcium 9.2 mg/dL (8.3-10.6); Calcium (Corrected) 9.8 mg/dL (8.5-10.1); Carbon Dioxide 20.8 mMol/L (20.0-31.0); Chloride 114 mMol/L (98-107); Creatinine (Component) 0.8 mg/dL (0.6-1.3); Estimated Creatinine Clearance 113.2 mL/min (>60); Globulin 3.7 gm/dL (2.3-3.5); Glucose 114 mg/dL (74-106); Magnesium 1.8 mg/dL (1.6-2.6); Osmolality,Calculated 292 (275-295); Phosphorous 3.6 mg/dL (2.4-5.1); Potassium 4.3 mMol/L (3.4-5.1); Sodium 147 mMol/L (136-145); Total Protein 7.0 gm/dL (5.7-8.2); eGFR > 60 See Note
[2024-12-29 05:56] LABS: Glucose Estimated Average 120 mg/dL (80-131); Hemoglobin A1C 5.8 % Hgb (4.8-6.0)
--- NOTE | 2024-12-29 06:15 | PC.NURSE ---
Resident Dr. Barrett at bedside. Aware pt is more awake/oriented to self; able to follow commands; pt did pass swallow evaluation. Pt has ordered dose of Lactulose at 0600, discussed with MD if dose should be given via IA or if order can be change to PO, current ammonia level is 78. Per MD hold ordered dose Lactulose for 0600; states will discuss with attending MD.
[2024-12-29] MEDS: HEPARIN SOD INJ 5000 UNIT/ML VIAL SC ×2 (08:32→20:02)
[2024-12-29] MEDS: SUCRALFATE 1 GM TABLET PO ×2 (09:40→20:02)
[2024-12-29] MEDS: LOSARTAN POTASSIUM 25 MG TABLET 50 MG PO (09:41)
[2024-12-29] MEDS: LACTULOSE SYRUP 20 GM/30 ML UDC 10 GM PO ×3 (09:42→22:22)
--- NOTE | 2024-12-29 09:50 | PC.SS ---
SS attempted to make over the phone contact with pt sister Leonarda Horta [phone], no answer. VM left.
--- NOTE | 2024-12-29 12:36 | PC.SS ---
Mando Yeboah is a 59 year-old male admitted to [facility] for AMS d/t Hyperammonemia. SS conducted bedside contact with the patient to complete initial assessment and to discuss discharge planning. Role and reason explained. Patient confirmed demographic information. Patient identifies his sister Magda Horta [phone] as his surrogate decision maker. Pt states he is able to complete all ADL?s independent. Pt does not possess any DME. Pts PCP is Ronal Witt. Pharmacy of choice is [facility]. Discharge options discussed and the pt wishes to return home.? Pt fam will provide transport. No further intervention required at this time, social security specialist would be available to address any further concerns. DC Plan: Home Contact: Sister Address: Confirmed on face sheet PCP: Eduar
[2024-12-29] MEDS: Magnesium Sulfate 2 GM Ivpb 2 GM/50 ML BAG IV (14:16)
[2024-12-29 16:21] LABS: Sodium 142 mMol/L (136-145)
--- NOTE | 2024-12-29 16:55 | ESPR_ITS ---
<Statement entered by Jason Zarate MD - 12/30/24 16:23> Patient examined and case discussed with the team including attending physician. Note reviewed, I agree with the care plan as documented. Please refer to the note below for further details. - Jason Zarate MD, PGY 3 Disclaimer: The document may contain phonetic/typographic errors due to voice recognition software. These errors are purely due to imperfections in the software program. Documentation for date of: 12/29/24 Subjective Subjective Interval history: Patient was seen and examined at bedside.P gorge had been agitated yesterday and received Haldol 2.5 mg x 2 for sedation. An nutrition and dietetics instructor call at 3 AM for agitation patient pulling out urinary catheter and he was given Benadryl 25 mg x 1. In the morning patient was seen pleasant and cooperative. Oriented to self, family identity, but did not recognize where he was at or why he was being hospitalized. Last ammonia 78. According to the nurse, patient was bleeding from urethra as a result of traumatic removal of the catheter. Patient passed swallow screen and will give lactulose orally. Exam Vital Signs Temp Pulse Resp BP Pulse Ox O2 Del Method 96.8 F 58 L 16 128/73 97 Room Air 12/29/24 12:00 12/29/24 12:00 12/29/24 12:00 12/29/24 12:00 12/29/24 12:12/29/24 12:00 Narrative Exam General: Alert and oriented x1, only knows self and close family members, does not recognize where he is found or why he is being hospitalized. no apparent distress. Skin: Intact, Warm, no rashes. Noted lacerations on the right christian area. HEENT: Normocephalic, Atraumatic. Normal neck range of motion, Supple. Trachea midline. Respiratory: Lungs are clear to auscultation, Breath sounds are equal bilaterally with equal chest expansion. Cardiovascular: RRR, normal S1, S2, No murmurs. Distal pulses 2+ Abdomen: Abdomen non-distended, without erythema, or lesions. Normotensive bowel sounds x4. Percussion tympanic. Palpation soft, nontender in all four quadrants. No organomagely. Absent rigidity, guarding, or rebound. Musculoskeletal/Extremities: No erythema, swelling, tenderness of any joints. No edema of BLE. DP pulses +2/3 b/l. Full active ROM of all four extremities. Neurologic: CN II through XII intact. Moves all 4 extremities. Sensation intact across C6-T1 and L2-S1 dermatomes bilaterally. Psych: Thoughts linear and responses appropriate. Objective Labs 12/30/24 04:25 12/30/24 04:25 Labs: Laboratory Results - last 24 hr 12/28/24 12/29/24 12/29/24 21:12 04:40 16:04 WBC 6.9 D RBC 4.98 Hgb 12.0 L Hct 39.4 L MCV 79 L MCH 24.1 L MCHC 30.5 L RDW Std Deviation 50.9 H Plt Count 108 L Neut % (Auto) 62 Lymph % (Auto) 24 [place] % (Auto) 13 H Eos % (Auto) 0 Baso % (Auto) 1 Neut # (Auto) 4.3 Lymph # (Auto) 1.6 [place] # (Auto) 0.9 H Eos # (Auto) 0.0 Baso # (Auto) 0.1 Immature Gran # (Auto) 0.00 Absolute Nucleated RBC 0.00 Immature Gran % 0 Nucleated RBC % 0 Sodium 147 H 142 Potassium 4.3 Chloride 114 H Carbon Dioxide 20.8 Anion Gap 12 BUN 10 Creatinine 0.8 Estim Creat Clear Calc 113.2 eGFR > 60 BUN/Creatinine Ratio [address] Glu mg/dL 120 Hemoglobin A1c 5.8 Calculated Osmolality 292 Calcium 9.2 Corrected Calcium 9.8 Phosphorus 3.6 Magnesium 1.8 Total Bilirubin 1.6 H AST 52 H ALT 19 Alkaline Phosphatase 120 H Ammonia 78 H Total Protein 7.0 Albumin 3.3 L Globulin 3.7 H Albumin/Globulin Ratio 0.9 L Quality Measures Quality Measures none Assessment & Plan Assessment Current Active Medications: Generic Name Dose Route Start Last Admin Trade Name Freq PRN Reason Stop Dose Admin Acetaminophen 1,000 mg 12/28/24 16:14 Acetaminophen 325 Mg Tablet PO 01/27/25 15:12 Q6H PRN fever 99 or pain 1-3/10 Dextrose 25 ml 12/28/24 20:57 Dextrose 50%-Water Inj 50 Ml Syringe IV 01/27/25 20:56 Q15MIN PRN BG 50-70 responsive npo pt Dextrose 50 ml 12/28/24 20:57 Dextrose 50%-Water Inj 50 Ml Syringe IV 01/27/25 20:56 Q15MIN PRN BG <50 OR BG <70 & pt unresponsive Diazepam 10 mg 12/29/24 10:02 Diazepam Inj 5 Mg/Ml Vial 2 Ml IVP 01/03/25 10:01 Q2HR PRN CIWA >20 Folic Acid 1 mg 01/01/25 09:00 Folic Acid 1 Mg Tablet PO 01/31/25 08:59 QDAY SANTIAGO Folic Acid 1 mg 12/30/24 09:00 Folic Acid Inj 1 Mg/0.2 Ml IVP 01/01/25 08:59 QDAY SANTIAGO Glucagon 1 mg 12/28/24 20:57 Glucagon Inj 1 Mg Vial IM Q15MIN PRN BG <70, and no IV access Heparin Sodium (Porcine) 5,000 unit 12/28/24 21:00 12/29/24 08:32 Heparin Sod Inj 5000 Unit/Ml Vial SC 01/11/25 20:59 5,000 unit BID SANTIAGO Administration Hydralazine HCl 10 mg 12/28/24 16:46 Hydralazine Inj 20 Mg/Ml Vial IVP 01/27/25 20:59 BID PRN BP >140 Insulin Human Lispro 0 unit 12/29/24 00:00 12/29/24 11:53 Insulin Lispro (Admelog) 1 Unit/0.01 Ml Unit SC 01/28/25 00:00 Not Given Q6HR SANTIAGO Protocol Lactulose 10 gm 12/29/24 09:15 12/29/24 14:17 Lactulose Syrup 20 Gm/30 Ml Udc PO 01/28/25 09:14 10 gm TID SANTIAGO Administration Protocol Lorazepam 1 mg 12/29/24 10:02 Lorazepam 0.5 Mg Tablet PO 01/03/25 10:01 Q4HR PRN CIWA 5-10 Lorazepam 2 mg 12/29/24 10:02 Lorazepam 0.5 Mg Tablet PO 01/03/25 10:01 Q2HR PRN CIWA 11-15 Lorazepam 4 mg 12/29/24 10:02 Lorazepam 0.5 Mg Tablet PO 01/03/25 10:01 Q2HR PRN CIWA 16-20 Losartan Potassium 50 mg 12/29/24 09:00 12/29/24 09:41 Losartan Potassium 25 Mg Tablet PO 01/28/25 08:59 50 mg QDAY SANTIAGO Administration Ondansetron HCl 4 mg 12/28/24 16:46 Ondansetron Inj 2 Mg/Ml Inj 2 Ml IV 01/27/25 16:45 Q6HR PRN NAUSEA OR VOMITING Protocol Pantoprazole Sodium 40 mg 12/28/24 16:15 12/29/24 08:25 Pantoprazole Inj 40 Mg Vial IVP 01/27/25 16:14 40 mg QDAY SANTIAGO Administration Sucralfate 1 gm 12/29/24 09:00 12/29/24 09:40 Sucralfate 1 Gm Tablet PO 01/28/25 08:59 1 gm BID SANTIAGO Administration Thiamine HCl 100 mg 12/30/24 09:00 Thiamine Inj 100 Mg/Ml Vial 2 Ml IVP 01/01/25 08:59 QDAY SANTIAGO Thiamine HCl 100 mg 01/01/25 09:00 Thiamine 100 Mg Tablet PO 01/31/25 08:59 QDAY SANTIAGO Plan Plan Patient is a 59 years old male with past medical history of hypertension, diabetes mellitus, GERD and Liver cirrhosis who presented to the ED with complaint of Altered mental status. Was found to have elevated ammonia, noncompliant with his lactulose dosing. We will admit the patient for management of Acute encephalopathy likely secondary to Decompesnsated liver cirrhosis. #Acute encephalopathy #Decompensated liver cirrhosis #Hyperammonemia Patient presented with altered mentation, was agitated and confused in the ED CT head was obtained, negative for acute hemorrhage, mass effect or midline shift Patient has some scratches, CT cervical spine was obtained in the ED, negative for acute fractures Noted to have T. Dennis of 1.7, AST 46, ALP 132, Ammonia 132, PT/INR 14/1.3 -Frequent neurochecks, Head of bed elevated, bedside swallow screen, speech therapy evaluation -Patient passed bedside swallow eval, started low-sodium diet. -Started on Lactulose rectally, goal of 3-4 bowel movement per day -Received haloperidol and Midazolam for agitation ? Started patient on lactulose syrup 10 g 3 times daily to be taken orally with a goal of 3-4 bowel movements daily #Hypertension, primary, stage 2 #Hypernatremia, resolved Systolic bood pressure in 150s to 160s Sodium noted to be 147 on the morning of 12/29.? Encouraged oral rehydration. Repeat sodium check 142. Plan: -Patient on hydralazine as needed -Resumed losartan 50mg daily #Diabetes Mellitus Started on Insulin sliding scale A1C for AM #GERD Started on Pantoprazole Disposition: Telemetry for management of acute encephalopathy DVT prophylaxis: Heparin SC Diet: Low-sodium 2 g diet supplemented with Ensure plus high-protein Code Status: Full code This case was discussed with my attending physician, Dr. Khan, and senior resident, Dr Zarate. Eryn Barrett, DO PGY I Attending Provider Attestation/Addendum I attest that I was physically present for the evaluation, physical examination, lab and imaging review of the patient with the residents. I discussed the case with the residents and agree with the findings and plans of care as documented above. Adriana Khan MD
[2024-12-29] MEDS: INSULIN LISPRO (AdmeLOG) 1 UNIT/0.01 ML UNIT SC (20:05)
[2024-12-30] VITALS (8 sets, daily range): BP systolic 93–142; BP diastolic 55–98; PULSE 51–76; RESP 13–21; TEMP 36–36.4; O2SAT 96–99
[2024-12-30] MEDS: LACTULOSE SYRUP 20 GM/30 ML UDC 10 GM PO ×2 (05:26→14:21)
[2024-12-30 05:53] LABS: Basophils # (Auto) 0.0 Thou/mm3 (0.0-0.2); Basophils % (Auto) 1 % (0-2.5); Eosinophils # (Auto) 0.2 Thou/mm3 (0.0-0.5); Eosinophils % (Auto) 4 % (0-10); Hematocrit 34.3 % (41.0-53.0); Hemoglobin 10.7 g/dL (13.5-16.0); Immature Granulocytes Auto 0.01 Thou/mm3 (0.00-0.00); Lymphocytes # (Auto) 2.2 Thou/mm3 (1.0-4.8); Lymphocytes % (Auto) 42 % (10-50); Mean Corpuscular HGB Conc 31.2 g/dl (31.0-37.0); Mean Corpuscular Hemoglobin 24.4 pg (25.0-35.0); Mean Corpuscular Volume 78 fL (80-100); Monocytes # (Auto) 0.7 Thou/mm3 (0.0-0.8); Monocytes % (Auto) 14 % (0-12); Neutrophils # (Auto) 2.1 Thou/mm3 (1.8-7.7); Neutrophils % (Auto) 40 % (37-80); Nucleated Red Blood Cell # 0.00 Thou/mm3 (0.00-0.00); Nucleated Red Blood Cell % 0 /100 WBC (0); Platelet Count 112 Thou/mm3 (140-440); RDW Standard Deviation 50.5 fL (35.1-43.9); Red Blood Count 4.39 Miln/mm3 (4.50-5.90); White Blood Count 5.2 Thou/mm3 (3.8-10.6)
[2024-12-30 06:16] LABS: Alanine Aminotransferase 18 U/L (10-49); Albumin, Serum 2.8 gm/dL (3.5-5.0); Albumin/Globulin Ratio 0.9 (1.2-2.2); Alkaline Phosphatase 100 U/L (46-116); Anion Gap 10 (7-16); Aspartate Amino Transferase 51 U/L (0-34); BUN/Creatinine Ratio 11 Ratio (12-20); Bilirubin,Total 1.3 mg/dL (0.3-1.2); Blood Urea Nitrogen 10 mg/dL (9-23); Calcium 8.6 mg/dL (8.3-10.6); Calcium (Corrected) 9.6 mg/dL (8.5-10.1); Carbon Dioxide 23.6 mMol/L (20.0-31.0); Chloride 107 mMol/L (98-107); Creatinine (Component) 0.9 mg/dL (0.6-1.3); Estimated Creatinine Clearance 99.0 mL/min (>60); Globulin 3.2 gm/dL (2.3-3.5); Glucose 107 mg/dL (74-106); Magnesium 2.0 mg/dL (1.6-2.6); Osmolality,Calculated 280 (275-295); Phosphorous 5.2 mg/dL (2.4-5.1); Potassium 3.5 mMol/L (3.4-5.1); Sodium 141 mMol/L (136-145); Total Protein 6.0 gm/dL (5.7-8.2); eGFR > 60 See Note
[2024-12-30] MEDS: HEPARIN SOD INJ 5000 UNIT/ML VIAL SC (08:32)
[2024-12-30] MEDS: SUCRALFATE 1 GM TABLET PO (08:32)
[2024-12-30] MEDS: THIAMINE INJ 100 MG/ML VIAL 2 ML IVP (08:33)
[2024-12-30] MEDS: FOLIC ACID INJ 1 MG/0.2 ML IVP (08:34)
[2024-12-30] MEDS: LOSARTAN POTASSIUM 25 MG TABLET 50 MG PO (08:35)
[2024-12-30] MEDS: SEVELAMER CARBONATE 800 MG TABLET PO (09:28)
[2024-12-30] MEDS: POTASSIUM CHL 10 mEq IVPB 10 MEQ/100 ML BAG 75 MEQ IV (09:29)
[2024-12-30] MEDS: PROPRANOLOL 40 MG TABLET PO (11:39)
[2024-12-30] MEDS: INSULIN LISPRO (AdmeLOG) 1 UNIT/0.01 ML UNIT SC (11:45)
--- NOTE | 2024-12-30 13:52 | EKG_ITS ---
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
--- NOTE | 2024-12-30 14:00 | ESDS_ITS ---
<Statement entered by Vinh oMreno MD - 12/30/24 15:02> Note reviewed and agree with care plan as documented. Please refer to the note below for further details. Plan discussed with attending physician Dr. Erin Moreno MD PGY-2 Internal Medicine Planned Discharge Date 12/30/24 DS: Providers Provider Date of admission: 12/28/24 15:08 Primary care physician: Physician No Primary/Family Admitting Provider: Adriana Khan MD Attending Provider on Admission: Adriana Khan MD Consults: 12/29/24 08:00 Referral Speech Therapy Routine Comment: 12/29/24 08:15 Referral - [facility] Routine Comment: swallow eval c Dodie 12/30/24 10:44 Referral Physical Therapy Routine Comment: Physician Instructions: Instructions: In preparation for discharge Attending Provider on DC: Adriana Khan MD Discharging Provider: Eryn Barrett DO DS: Diagnosis Problem List Completed Was Problem List Reviewed/Reconciled?: Yes Hospital Course Hospital Course Hospital course: Mando Cordero is a 59-year-old male with past medical history of hypertension, diabetes mellitus type 2, GERD and liver disease who presented to the ED on 12/28/2024 for altered mental status. Patient had been found by family members to be lying unresponsive on the floor. last known well 2 days before presentation but even then patient was making inappropriate comments. Patient was admitted for management of acute encephalopathy likely secondary to decompensated liver cirrhosis. At arrival, patient afebrile blood pressure 155/94. WBC 4.4, ammonia 132 notably. T. bili 1.7. Abdominal ultrasound positive for primary hepatocellular disease versus cirrhosis. No gross fractures noted on CT cervical spine. CT head was negative for acute hemorrhage, mass effect, or midline shift. Patient mentation improved with serial lactulose enemas in the beginning. As soon as patient was cognizant enough to do a swallow evaluation, and pass, patient's diet was advanced and lactulose 20mg was given orally 3 times daily to stimulate excretion of ammonia through bowel movements. Latest ammonia 78 on 12/28. As patient had history of heavy alcohol use, he was also monitored on CIWA protocol, and while scores were elevated on day 2, by the morning of 12/30, patient scored 0-1. He did not require Ativan, Valium, or Librium for management of withdrawal symptoms which were virtually absent. Physical therapy evaluated the patient patient safe to ambulate by himself without the need for assistive devices. Will follow-up home health physical therapy. At the time of discharge, patient is medically stable and deemed safe to return to his/her previous state of living. Admission diagnosis: #Acute encephalopathy #Decompensated liver cirrhosis #Hyperammonia anemia #Hypertension, primary, stage II #Hypernatremia, resolved #Diabetes mellitus Discharge instructions: * Follow-up with PCP within 1-2 weeks of discharge. * Continue to take lactulose 20 g 4 times daily to remove toxic ammonia from your system. Start taking B complex with vitamin C daily for your mental health and overall physical well being. Take ferrous sulfate 325mg every other day as you have anemia and your blood iron level is low. * Continue to take your home medication at previous doses of losartan 50 mg daily, metformin 500 mg twice daily, propranolol 40 mg daily, sucralfate 1 g twice daily. * You may follow-up with one of our residents doctor with the [facility] at the address below. * Continue taking medications as prescribed below. * Return to Emergency Room if symptoms persist, worsen, or new symptoms develop. [facility] [address] [place] [address] Keep taking lactulose 20 g 4 times daily to stimulate bowel movements which will remove toxic ammonia from your system. This case was discussed with my attending physician, Dr. Khan, and senior resident, Dr Tiffanie Sadler. Eryn Barrett, DO PGY I Status at Discharge Cognitive/behavioral status at discharge: stable Time Spent with Patient Time attestation: Total time spent providing and/or coordinating discharge services: 36 min Time spent: Greater than 30 minutes Home Health Home Health Referral Orders: . Exam Vital Signs Temp Pulse Resp BP Pulse Ox O2 Del Method 96.9 F 65 19 127/62 99 Room Air 12/30/24 12:12/30/24 12:12/30/24 12:12/30/24 12:12/30/24 12:12/30/24 12:00 Narrative Exam General: Alert and oriented x3, No apparent distress. Skin: Intact, Warm, no rashes. HEENT: Normocephalic, Atraumatic. Normal neck range of motion, Supple. Trachea midline. Respiratory: Lungs are clear to auscultation, Breath sounds are equal bilaterally with equal chest expansion. Cardiovascular: RRR, normal S1, S2, No murmurs. Distal pulses 2+ Abdomen: Abdomen non-distended, without erythema, or lesions. Normotensive bowel sounds x4. Percussion tympanic. Palpation soft, nontender in all four quadrants. No organomagely. Absent rigidity, guarding, or rebound. Musculoskeletal/Extremities: No erythema, swelling, tenderness of any joints. No edema of BLE. DP pulses +2/3 b/l. Full active ROM of all four extremities. Neurologic: NEURO: Oriented x3, cranial nerves II to XII grossly intact. Muscle strength 5/5 on UE and LE b/l, Moves extremities x4. Sensation intact to gross touch along C6-T1 and L2-S1 dermatomes. No focal neurologic deficits noted Psych: Thoughts linear and responses appropriate Discharge Plan Plan Patient Disposition: HOME (Self Care) Patient condition on transfer: Stable Care Plan Goals: * Follow-up with PCP within 1-2 weeks of discharge. * Continue to take lactulose 20 g 4 times daily to remove toxic ammonia from your system. Start taking B complex with vitamin C daily for your mental health and overall physical well being. Take ferrous sulfate 325mg every other day as you have anemia and your blood iron level is low. * Continue to take your home medication at previous doses of losartan 50 mg daily, metformin 500 mg twice daily, propranolol 40 mg daily, sucralfate 1 g twice daily. * You may follow-up with one of our residents doctor with the [facility] at the address below. * Continue taking medications as prescribed below. * Return to Emergency Room if symptoms persist, worsen, or new symptoms develop. [facility] [address] [place] [address] Keep taking lactulose 20 g 4 times daily to stimulate bowel movements which will remove toxic ammonia from your system. Prescriptions/Referrals Prescriptions/Med Rec: New lactulose 20 gram packet 20 g PO QID PRN (Reason: encephalopathy) Qty: 30 0RF Rx Instructions: Titrate to 3 bowel movements per day ferrous sulfate 325 mg (65 mg iron) tablet 325 mg PO Q OTHER DAY Qty: 30 0RF B-complex with vitamin C Capsule 1 cap PO QDAY Qty: 30 0RF Continued losartan 50 mg Tablet 50 mg PO QDAY metformin 500 mg Tablet 500 mg PO BID sucralfate 1 gram Tablet 1 g PO BID propranolol 40 mg Tablet 40 mg PO DAILY Referrals: No Primary/Family,Physician [Primary Care Provider] Outpatient Orders (i.e. Home Health, Labs, Imaging): CBC (Routine) Timeframe: 1 Week Location: Determined by Patient Ordered By: Vinh Moreno Patient/Caregiver Discharge Instructions Education Materials: Low-Salt Choices, Understanding Cirrhosis, Diabetes and High Blood Pressure Print Language: Urdu Stand Alone Forms: [facility] Award Info., Patient Portal Info Letter Discharge Order Discharge Orders: Discharge (Routine); Ordered 12/30/24 Ordered By: Vinh Moreno Quality Discharge Quality Measures VTE prophylaxis Attestestation Attestation I attest that I was physically present for the evaluation, physical examination, lab and imaging review of the patient with the residents. I discussed the case with the residents and agree with the findings and plans of care as documented above. Adriana Khan MD
[2024-12-30] MEDS: Magnesium Sulfate 2 GM Ivpb 2 GM/50 ML BAG IV (14:20)
--- NOTE | 2024-12-30 16:37 | PC.NURSE ---
Per Dr. Khan patient can de discharged today.
== END 2024-12-30 18:09 | disposition home or self-care (01) ==
LOC: SERX 13:12 → SERHOLD 15:47 → S2NX 19:49
PROVIDERS: Admitting Provider Student in an Organized Health Care Education/Training Program; Emergency Provider Emergency Medicine; Visit Provider Student in an Organized Health Care Education/Training Program
DX: K74.60 Unspecified cirrhosis of liver (principal); I10 Essential (primary) hypertension; E11.9 Type 2 diabetes mellitus without complications; K21.9 Gastro-esophageal reflux disease without esophagitis; K76.9 Liver disease, unspecified; K76.82 Hepatic encephalopathy; D69.6 Thrombocytopenia, unspecified; E87.0 Hyperosmolality and hypernatremia; Z87.891 Personal history of nicotine dependence; N36.8 Other specified disorders of urethra; Z91.199 Patient's noncompliance with other medical treatment and regimen due to unspecified reason; Z79.84 Long term (current) use of oral hypoglycemic drugs; Z79.899 Other long term (current) drug therapy
CPT/HCPCS: 36415; 70450; 72125; 76705; 80053; 80307; 81001; 82140; 83036; 83735; 84100; 84295; 84436; 84443; 84484; 85025; 85610; 92610; 93005; 96361; 96372; 96374; 96375; 96376; 97162; 99285; A4216; A4314; J1200; J1630; J1644; J1815; J2250; J2358; J2470; J3411; J3475; J3480; J3490; J7120; A9270; J2359